=== PATIENT | male | born 1990 | race Caucasian/White ===

== ENCOUNTER 2021-11-13 10:17 | Emergency (ER) | payer SELFPAY ==
[~2021-11-13] VITALS: Ht 185.4 cm; Wt 93.2 kg
[2021-11-13 10:23] VITALS: TEMP 97.7
[2021-11-13] MEDS ORDERED: FLEXERIL 1010 MG/TAB PO (12:04)
[2021-11-13 12:35] VITALS: BP 140/87; PULSE 87
[2021-11-13] MEDS ORDERED: PREDNISONE50 MG PO (15:38)
== END 2021-11-13 12:20 | disposition home or self-care (01) ==
LOC: COL.ER 10:17
DX: M62.830 Muscle spasm of back (principal)
CPT/HCPCS: J1885; J3360

== ENCOUNTER 2021-11-13 12:47 | Emergency (ER) | payer SELFPAY ==
[~2021-11-13] VITALS: Ht 185.4 cm; Wt 93.2 kg
[~2021-11-13 12:47] MED LIST: FLEXERIL 1010 MG/TAB PO
[2021-11-13 13:50] VITALS: BP 113/73
[2021-11-13] MEDS ORDERED: PREDNISONE50 MG PO (15:38)
[2021-11-13 15:46] VITALS: PULSE 88; TEMP 98.2
== END 2021-11-13 15:54 | disposition home or self-care (01) ==
LOC: COL.ER 12:47
DX: M54.30 Sciatica, unspecified side (principal)
CPT/HCPCS: J7512

== ENCOUNTER → 2021-12-09 | Outpatient (CLI) | payer OTHER ==
[~2021-12-09] MED LIST changes: +PREDNISONE50 MG PO
== END ==
LOC: COL.RAD 07:42
DX: M48.07 Spinal stenosis, lumbosacral region (principal); M51.27 Other intervertebral disc displacement, lumbosacral region; M47.817 Spondylosis without myelopathy or radiculopathy, lumbosacral region; M40.46 Postural lordosis, lumbar region